=== PATIENT | female | born 1990 | race Caucasian/White ===

== ENCOUNTER 2017-05-07 20:56 | Inpatient (IN) ==
[2017-05-07] MEDS ORDERED: ZOFRAN IV PRN (21:47)
[2017-05-07] MEDS ORDERED: KEFZOL 1 GM/D5W 1 GM/50 ML IVPB IV PRN (21:47)
[2017-05-07] MEDS ORDERED: AMBIEN PO PRN (21:47)
[2017-05-07] MEDS ORDERED: BRETHINE SUBQ PRN (21:47)
[2017-05-07] MEDS ORDERED: PEPCID PO PRN (21:47)
[2017-05-07] MEDS ORDERED: STADOL IV PRN ×3 (21:47)
[2017-05-07] MEDS ORDERED: PEPCID IV PRN (21:47)
[2017-05-07] MEDS ORDERED: TYLENOL PO PRN (21:47)
[2017-05-07 21:55] LABS: URINE SOURCE VOIDED
[2017-05-07 21:59] LABS: BILIRUBIN URINE NEGATIVE (NEGATIVE); BLOOD URINE NEGATIVE (NEGATIVE); CLARITY CLEAR (CLEAR); COLOR YELLOW; GLUCOSE URINE NEGATIVE (NEGATIVE); LEUKOCYTES URINE NEGATIVE (NEGATIVE); NITRITE URINE NEGATIVE (NEGATIVE); PROTEIN URINE NEGATIVE (NEGATIVE); UROBILINOGEN URINE NORMAL
[2017-05-07 22:05] LABS: UR AMPHETAMINES QUAL NONE DETECTED (NONE DETECT); UR BARBITUATES QUAL NONE DETECTED (NONE DETECT); UR BENZODIAZEPIN QUAL NONE DETECTED (NONE DETECT); UR CANNABINOIDS QUAL NONE DETECTED (NONE DETECT); UR COCAINE QUAL NONE DETECTED (NONE DETECT); UR MDMA QUAL NONE DETECTED (NONE DETECT); UR METHADONE QUAL NONE DETECTED (NONE DETECT); UR METHAMPHETAMINE QUAL NONE DETECTED (NONE DETECT); UR OPIATES QUAL NONE DETECTED (NONE DETECT); UR OXYCODONE QUAL NONE DETECTED (NONE DETECT); UR PCP QUAL NONE DETECTED (NONE DETECT); UR TCA QUAL NONE DETECTED (NONE DETECT)
[2017-05-07] MEDS: LR 1,000 ML IV SCH (22:05)
[2017-05-07 22:57] LABS: MANUAL DIFF NEEDED? NO
[2017-05-07 22:59] LABS: BASO% 0.1 % (0.0-0.8); EOS# 0.11 X1000 (0.0-0.7); EOS% 0.8 % (0.0-10.0); HEMOGLOBIN 14.5 g/dL (12.0-16.0); IMM GRAN# 0.09 X1000 (0.0-0.04); IMM GRAN% 0.7 % (0.0-0.5); LYMPH# 2.85 X1000 (1.2-3.4); MCH 30.5 PG (27-31); MCV 92.4 FL (81-99); MONO# 1.04 X1000 (0.11-0.59); MONO% 7.7 % (1.7-9.3); MPV 12.5 FL (7.4-10.4); NEUT% 69.7 % (42.2-75.2); PLT 217 X1000 (130-400); RBC 4.76 XMIL (4.2-5.4)
[2017-05-07] MEDS ORDERED: CYTOTEC PO ONE (23:00)
[2017-05-08] MEDS ORDERED: CYTOTEC PO ONE (02:15)
[2017-05-08] MEDS ORDERED: CYTOTEC PO SCH (03:00)
[2017-05-08] MEDS ORDERED: PITOCIN 30 UNITS/LR 30 UNITS/500 ML IV.SOLN IV SCH (07:00)
[2017-05-08] MEDS ORDERED: FENTANYL-BUPIV-NS 2 MCG-0.1% 200 ML EPIDURAL PRN (07:08)
[2017-05-08] MEDS: LR 1,000 ML IV SCH (07:20)
[2017-05-08] MEDS ORDERED: XYLOCAINE-MPF 1% INJ ONE (08:51)
[2017-05-08] MEDS ORDERED: MINERAL OIL ONE (08:52)
[2017-05-08] MEDS ORDERED: MINERAL OIL PO PRN (16:35)
[2017-05-08] MEDS ORDERED: BOOSTRIX VACCINE IM ONE (16:35)
[2017-05-08] MEDS ORDERED: PITOCIN 30 UNITS/LR 30 UNITS/500 ML IV.SOLN IV ONE (16:35)
[2017-05-08] MEDS ORDERED: BENADRYL PO PRN (16:35)
[2017-05-08] MEDS ORDERED: NORCO-5 PO PRN (16:35)
[2017-05-08] MEDS ORDERED: XYLOCAINE-MPF 1% INJ PRN (16:35)
[2017-05-08] MEDS ORDERED: NORCO-10 PO PRN (16:35)
[2017-05-08] MEDS ORDERED: BENADRYL IV PRN (16:35)
[2017-05-08] MEDS ORDERED: HYDROXYZINE IM PRN (16:35)
[2017-05-08] MEDS ORDERED: HYDROXYZINE PO PRN (16:35)
[2017-05-08] MEDS ORDERED: PITOCIN 20 UNITS/LR 20 UNITS/1,000 ML IV.SOLN IV SCH (16:35)
[2017-05-08] MEDS ORDERED: M-M-R II VACCINE SUBQ ONE (16:35)
[2017-05-08] MEDS ORDERED: CYTOTEC PO PRN (16:35)
[2017-05-08] MEDS ORDERED: AMBIEN PO PRN (16:35)
[2017-05-08] MEDS ORDERED: PITOCIN IM PRN (16:35)
[2017-05-08] MEDS: MOTRIN PO PRN (20:02)
[2017-05-08] MEDS: PERICOLACE PO SCH (20:29)
[2017-05-08] MEDS: PERI MEDS (DERMOPLAST/NUPERCAINAL/TUCKS) MISC PRN (20:32)
[2017-05-09 06:55] LABS: MANUAL DIFF NEEDED? NO
[2017-05-09 08:04] LABS: BASO% 0.1 % (0.0-0.8); EOS# 0.05 X1000 (0.0-0.7); EOS% 0.3 % (0.0-10.0); HEMATOCRIT 30.5 % (37.0-47.0); HEMOGLOBIN 9.8 g/dL (12.0-16.0); IMM GRAN# 0.06 X1000 (0.0-0.04); IMM GRAN% 0.4 % (0.0-0.5); LYMPH# 1.73 X1000 (1.2-3.4); LYMPH% 11.1 % (20.5-51.1); MCH 29.9 PG (27-31); MCHC 32.1 g/dL (33-37); MONO# 1.47 X1000 (0.11-0.59); MONO% 9.4 % (1.7-9.3); MPV 12.4 FL (7.4-10.4); NEUT% 78.7 % (42.2-75.2); PLT 178 X1000 (130-400); RBC 3.28 XMIL (4.2-5.4)
[2017-05-09] MEDS: FLINTSTONES COMPLETE PO SCH (08:39)
[2017-05-09] MEDS: MOTRIN PO PRN ×2 (08:58→17:40)
[2017-05-09] MEDS: PERICOLACE PO SCH (19:59)
[2017-05-09] MEDS: PERI MEDS (DERMOPLAST/NUPERCAINAL/TUCKS) MISC PRN (20:04)
[2017-05-10] MEDS: FLINTSTONES COMPLETE PO SCH (08:14)
[2017-05-10 08:15] VITALS: BP 107/72
--- NOTE | 2017-05-18 08:22 | OPERATIVE NOTE ---
PROCEDURE DATE: 05/08/2017 PRE-DELIVERY DIAGNOSES: Term . POST DELIVERY DIAGNOSES: Term delivered via vacuum-assisted vaginal delivery. PHYSICIAN: Zenon Arzate MD. ANESTHESIA: Epidural by Dr. James. FINDINGS: Viable male , 8 pounds 7 ounces, 9 and 10 Apgars. COMPLICATIONS: No complications. ESTIMATED BLOOD LOSS: 100 mL. COUNTS: All counts correct. DESCRIPTION OF PROCEDURE IN DETAIL: Ms. Michelle is a 26-year-old, 1, with estimated date of delivery of 05/12/2017, who is induced. She becomes complete, begins pushing, experiences some exhaustion. Kiwi is applied. Infant delivered with no complications. Care taken over by overhead foreman. A 3-vessel cord. The placenta was spontaneous, intact. There is a second-degree midline episiotomy repaired with 3-0 Vicryl in the usual fashion. Vaginal sweep. No clots or foreign material. Counts correct. Estimated blood loss 100 mL. Expect routine . cc: Zenon Arzate MD
== END 2017-05-10 09:45 | disposition home or self-care (01) ==
LOC: P.LD 20:56 → P.WC 05-08 21:00
PROVIDERS: ADMIT Obstetrics & Gynecology; ATTEND Obstetrics & Gynecology